=== PATIENT | female | born 1955 | race Caucasian/White ===

== ENCOUNTER 2016-03-24 04:12 | Emergency (ER) | payer OTHER ==
[~2016-03-24] VITALS: Ht 160 cm; Wt 67.3 kg
[~2016-03-24 04:12] MED LIST: ALENDRONATE SOD70 MG PO; CALCIUM600 MG PO; LEXAPRO10 MG PO; ULTRAM50 MG PO
[2016-03-24] MEDS ORDERED: VALIUM2 MG PO (06:54)
[2016-03-24] MEDS ORDERED: MOTRIN600 MG PO (06:54)
[2016-03-24 07:52] VITALS: BP 110/59
== END 2016-03-24 07:53 | disposition home or self-care (01) ==
LOC: EME 04:12
DX: M25.551 Pain in right hip (principal); M25.651 Stiffness of right hip, not elsewhere classified; R26.2 Difficulty in walking, not elsewhere classified; Z98.890 Other specified postprocedural states; Z88.1 Allergy status to other antibiotic agents
CPT/HCPCS: 73502; 99281; 99284

== ENCOUNTER 2017-09-11 16:06 | Emergency (ER) | payer OTHER ==
[~2017-09-11] VITALS: Ht 157.5 cm; Wt 68.4 kg
[~2017-09-11 16:06] MED LIST changes: +MOTRIN600 MG PO; +VALIUM2 MG PO
[2017-09-11 18:58] LABS: CHLORIDE 108 mEq/L (99-109); POTASSIUM 4.4 mEq/L (3.7-5.4); SODIUM 141 mEq/L (136-147)
[2017-09-11 19:00] LABS: GLUCOSE 98 mg/dL (70-99)
[2017-09-11 19:04] LABS: GFR ESTIMATE (CALCULATED) > 59 mL/min/
[2017-09-11 19:05] LABS: UREA NITROGEN (BUN) 22 mg/dL (9-23)
[2017-09-11 20:47] VITALS: BP 117/69
== END 2017-09-11 20:48 | disposition home or self-care (01) ==
LOC: EME 16:06
PROVIDERS: Physician Assistant
DX: R51 Headache (principal); M81.0 Age-related osteoporosis without current pathological fracture; Z87.891 Personal history of nicotine dependence; Z90.710 Acquired absence of both cervix and uterus; Z88.1 Allergy status to other antibiotic agents
CPT/HCPCS: 70470; 80048; 99281; 99285; J7040